=== PATIENT | male | born 1940 | race Caucasian/White ===

== ENCOUNTER 2020-12-19 07:23 | Day surgery (SDC) | payer MEDICARE, BC ==
[2020-12-19] MEDS ORDERED: Midazolam 1 MG/ML 2 ML SDV IV ONE (07:24)
[2020-12-19] MEDS ORDERED: fentaNYL 100 MCG/2 ML SDV IV ONE (07:24)
[2020-12-19] MEDS ORDERED: Sodium Chloride 0.9% 10 ML Syringe FLUSH PRN (07:30)
[2020-12-19] MEDS ORDERED: Lactated Ringers 1,000 ML IV PRN (07:30)
[2020-12-19] MEDS ORDERED: acetaZOLAMIDE 500 MG Cap.ER PO ONE (09:30)
--- NOTE | 2020-12-19 12:49 | OR ---
DATE OF OPERATION: 12/19/2020 SURGEON: Shilpi Johnson MD PREOPERATIVE DIAGNOSIS: 1. Visually significant cataract, right eye. 2. Astigmatism, right eye. POSTOPERATIVE DIAGNOSIS: 1. Visually significant cataract, right eye. 2. Astigmatism, right eye. PROCEDURES PERFORMED: Phacoemulsification with toric intraocular lens placement, right eye. ASSISTANTS: None. ANESTHESIA: Local with sedation. COMPLICATIONS: None. BLOOD LOSS: None. IMPLANTS: A pre-loaded RAFAELA [id number] 21.5 diopter lens implanted. CDE: . DESCRIPTION OF PROCEDURE: After risks and benefits were reviewed with the patient, consent was obtained in the preoperative area, and the operative eye was marked with a surgical pen. In the preoperative area, a pledget was used to dilate the pupil consisting of a mixture of phenylephrine 10%, cyclopentolate 2%, moxifloxacin 0.5%, and bupivacaine 0.75%. A toric marker was used to andrei the 0 and 180 axis. The patient was taken to the operating room, where a time- out was performed, and the patient was placed under monitored anesthesia care. Topical tetracaine was used for anesthesia. The operative eye was prepped and draped for ophthalmic surgery, and the microscope was brought into position and focused. A toric marker was used to andrei the axis of astigmatism. A paracentesis incision was made, followed by injection of Shugarcaine into the anterior chamber, followed by injection of Viscoat into the anterior chamber. A microkeratome blade was used to make a corneal limbal incision temporally. A cystotome was used to make the beginning of the capsulorrhexis, which was carried around 360 degrees in a curvilinear fashion using Utrata forceps. A Quesada cannula with BSS was used to hydrodissect and hydrodelineate the nucleus. The nucleus was removed in a divide and conquer manner using phacoemulsification. Irrigation and aspiration were used to remove the remaining cortical material. Provisc was used to inflate the capsular bag, and a pre-loaded RAFAELA [id number] 21.5 diopter lens, serial number [id number] was injected into the capsular bag. A Sinskey hook was used to position and center the lens and align it with the axis of astigmatism. Next, irrigation and aspiration was used to remove any remaining viscoelastic and cortical material from the anterior chamber. BSS on a cannula was used to inflate the anterior chamber and hydrate the wound. The wound was checked and found to be watertight. 1 mg of Moxifloxacin was injected into the anterior chamber. Drapes were removed and the eye was cleaned. A drop of brimonidine 0.2% and a drop of TobraDex was placed. The eye was shielded, and the patient was taken to the recovery room in stable condition. /[id number] RUPINDER/JEREL
== END 2020-12-19 10:25 | disposition home or self-care (01) ==
LOC: FB.SDS 07:23
PROVIDERS: ATTEND Ophthalmology
DX: H25.813 Combined forms of age-related cataract, bilateral (principal); H02.831 Dermatochalasis of right upper eyelid; H02.834 Dermatochalasis of left upper eyelid; H04.123 Dry eye syndrome of bilateral lacrimal glands; H35.033 Hypertensive retinopathy, bilateral; H52.223 Regular astigmatism, bilateral; H52.201 Unspecified astigmatism, right eye; I10 Essential (primary) hypertension; Z79.899 Other long term (current) drug therapy
CPT/HCPCS: 00142-QZ; A9270-GY; J2250; J3010

== ENCOUNTER 2021-01-02 08:50 | Day surgery (SDC) | payer MEDICARE, BC ==
[2021-01-02] MEDS ORDERED: Midazolam 1 MG/ML 2 ML SDV IV ONE (08:51)
[2021-01-02] MEDS ORDERED: fentaNYL 100 MCG/2 ML SDV IV ONE (08:51)
[2021-01-02] MEDS: Sodium Chloride 0.9% 10 ML Syringe FLUSH PRN (09:51)
[2021-01-02] MEDS ORDERED: Lactated Ringers 1,000 ML IV PRN (10:00)
[2021-01-02] MEDS: acetaZOLAMIDE 500 MG Cap.ER PO ONE (11:01)
--- NOTE | 2021-01-02 12:45 | OR ---
DATE OF OPERATION: 01/02/2021 SURGEON: Shilpi Johnson MD PREOPERATIVE DIAGNOSES: 1. Visually significant cataract, left eye. 2. Astigmatism, left eye. POSTOPERATIVE DIAGNOSES: 1. Visually significant cataract, left eye. 2. Astigmatism, left eye. PROCEDURES PERFORMED: Phacoemulsification with Toric intraocular lens placement, left eye. ASSISTANTS: None. ANESTHESIA: Local with sedation. COMPLICATIONS: None. BLOOD LOSS: None. IMPLANTS: A pre-loaded [id number] 20.0 diopter lens implanted. CDE: 7.60. DESCRIPTION OF PROCEDURE: After risks and benefits were reviewed with the patient, consent was obtained in the preoperative area, and the operative eye was marked with a surgical pen. In the preoperative area, a pledget was used to dilate the pupil consisting of a mixture of phenylephrine 10%, cyclopentolate 2%, moxifloxacin 0.5%, and bupivacaine 0.75%. The patient was positioned in the sitting position and a Toric marker was used to andrei the 0 and 180 axis. The patient was taken to the operating room, where a time-out was performed, and the patient was placed under monitored anesthesia care. Topical tetracaine was used for anesthesia. The operative eye was prepped and draped for ophthalmic surgery, and the microscope was brought into position and focused. A sterile toric marker was used to andrei the axis of astigmatism. A paracentesis incision was made, followed by injection of preservative-free 1% lidocaine into the anterior chamber, followed by injection of Viscoat into the anterior chamber. A microkeratome blade was used to make a corneal limbal incision temporally. A cystotome was used to make the beginning of the capsulorrhexis, which was carried around 360 degrees in a curvilinear fashion using Utrata forceps. A Quesada cannula with BSS was used to hydrodissect and hydrodelineate the nucleus. The nucleus was removed in a divide and conquer manner using phacoemulsification. Irrigation and aspiration were used to remove the remaining cortical material. Provisc was used to inflate the capsular bag, and a pre-loaded [id number] 20.0 diopter lens, serial number [id number] was injected into the capsular bag. A Sinskey hook was used to position and center the lens and rotated to the axis of astigmatism. Next, irrigation and aspiration was used to remove any remaining viscoelastic and cortical material from the anterior chamber. BSS on a cannula was used to inflate the anterior chamber and hydrate the wound. The wound was checked and found to be watertight. 1 mg of Moxifloxacin was injected into the anterior chamber. Drapes were removed and the eye was cleaned. A drop of brimonidine 0.2% and a drop of TobraDex was placed. The eye was shielded, and the patient was taken to the recovery room in stable condition. /[id number] RUPINDER/MODL
== END 2021-01-02 11:18 | disposition home or self-care (01) ==
LOC: FB.SDS 08:50
PROVIDERS: ATTEND Ophthalmology
DX: H25.813 Combined forms of age-related cataract, bilateral (principal); H02.831 Dermatochalasis of right upper eyelid; H02.834 Dermatochalasis of left upper eyelid; H04.123 Dry eye syndrome of bilateral lacrimal glands; H35.033 Hypertensive retinopathy, bilateral; H52.202 Unspecified astigmatism, left eye; I10 Essential (primary) hypertension; Z79.899 Other long term (current) drug therapy
CPT/HCPCS: 00142-QZ; A9270-GY; J2250; J3010